=== PATIENT | female | born 1970 | race African-American/Black ===

== ENCOUNTER 2022-02-02 13:00 | Outpatient (CLI) | payer BC | END 2022-02-02 13:01 | disposition home or self-care (01) | LOC: CSHMRI 13:00 | PROVIDERS: ATTEND Family Medicine | DX: G93.2 Benign intracranial hypertension (principal) | CPT/HCPCS: 70553 ==

== ENCOUNTER 2022-12-13 15:27 | Outpatient (CLI) | payer BC | END 2022-12-13 15:28 | disposition home or self-care (01) | LOC: CSHMAMMO 15:27 | PROVIDERS: ATTEND Family Medicine | DX: Z12.31 Encounter for screening mammogram for malignant neoplasm of breast (principal); Z80.3 Family history of malignant neoplasm of breast; Z98.890 Other specified postprocedural states | CPT/HCPCS: 77063; 77067 ==